=== PATIENT | female | born 2000 | race African-American/Black ===

== ENCOUNTER 2025-09-06 08:24 | Emergency (ER) | payer SELFPAY ==
[2025-09-06 08:28] VITALS: BP 123/58; PULSE 81; RESP 18; TEMP 36.6; O2SAT 98; BMI 30.1
--- NOTE | 2025-09-06 10:39 | ED_ITS ---
HPI - Skin/Abscess/Foreign Bdy General Chief complaint: Skin/Abscess/Foreign Body Stated complaint: hives, facial swelling Time Seen by Provider: 09/06/25 10:39 Source: patient Mode of arrival: ambulatory Limitations: no limitations History of Present Illness ED Provider: YUDELKA LANE PA-C HPI narrative: 24 year old female presents with sinus pain x24 hours. Reports returning home from work yesterday where she began having left sided sinus pain. Upon waking up this morning, felt pain to b/l maxillary sinsues, nasal congestion, and felt as though her face appeared swollen. 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 Additionally, reports the skin to her face has been dry and itchy recently. She has been applying lotion to the area - has been using this lotion for some time and has not had a reaction to it. No new medications/ antibiotics. Denies recent tick/insect bites. No known allergies. Denies fever, chills, cough, difficulty breathing, difficulty swallowing, sore throat. Related Data Previous Rx's ?Medication ?Instructions ?Recorded amoxicillin 875 mg-potassium 1 tab PO BID 7 days #14 t abs 09/06/25 clavulanate 125 mg tablet prednisone 20 mg tablet 40 mg (2 x 20 mg) PO DAILY 5 days 09/06/25 #10 tabs Allergies Allergy/AdvReac Type Severity Reaction Status Date / Time No Known Allergies Allergy Verified 09/06/25 08:31 Review of Systems Review of Systems: Yes all other systems are reviewed and are negative PMFSH Past Medical History Attestation statement: The following information was validated with the patient. Source: old records reviewed and nursing notes reviewed Social History Social History Advance Directives: No Advance Directives Information Provided: Yes Physical Exam Vital Signs: Vital Signs: Last Vital Signs Temp 97.8 F 09/06/25 08:28 Pulse 81 09/06/25 08:28 Resp 18 09/06/25 08:28 BP 123/58 L 09/06/25 08:28 Pulse Ox 98 09/06/25 08:28 O2 Del Method Room Air 09/06/25 08:28 BMI result Body Mass Index 30.1 Vital signs stable General: Well appearing, in no acute distress. Skin: Warm, dry, intact. No rashes. Head: Normocephalic, atraumatic. Mild erythema and swelling noted over bilateral maxillary sinuses, tender to percussion of bilateral maxillary sinuses. No tenderness to percussion over frontal sinus. EENT: Hearing is intact b/l. Conjunctiva clear. PERRLA. EOM intact. Moist mucous membranes.? Noted nasal congestion. Posterior oropharynx without erythema or edema, no peritonsillar masses, uvula midline, controlling secretions, speaking complete sentences. No muffled voice. Neck: Supple without LAD Cardiac: Chest wall symmetric. RRR Lungs: Normal respiratory effort without accessory muscle use. CTA bilaterally Ext: Upper and lower extremities atraumatic, without tenderness, deformity, swelling or erythema. Full ROM throughout Neuro: AOx3. Normal speech. Ambulating with steady gait. Medical Decision Making Medical Decision Making [facility] Narrative: 24 year old female presents with sinus pain x24 hours. Vitals are stable, airways patent. She is afebrile. Presentation concerning for sinusitis, plan to discharge patient home on Augmentin. Given itching, can not completely rule out allergic reaction however I do not suspect acute anaphylaxis. Will start patient on prednisone and advised [id number] Benadryl. I have also considered contact/atopic/eczematous dermatitis, psoriasis. History and exam findings not consistent with lyme/tick bourne illness, herpes zoster/simplex, scabies, HFM,? dangerous etiologies of rash such as SJS/TEN, or secondary dangerous causes such as petechial rashes from thrombocytopenia or rickettsial infections.? Differential Diagnosis Differential Diagnoses: The differential diagnosis associated with the presentation includes as above. Admission/Observation Not indicated External Record Review External record reviewed: Inpatient record Prescription Management I considered prescription management with: Antibiotic (Augmentin) and Other (Prednisone) Social Determinants Patient?s care significantly limited by Social Determinants of Health including: Other Social Determinant of Health Critical Care Time Critical Care Time Critical Care Time: No Discharge Plan Discharge Clinical Impression: Sinusitis Patient Disposition: Home, Self-Care Instructions: Sinusitis (ED) Additional Instructions: I am treating you for a sinus infection. Augmentin as an antibiotic that has been sent to your pharmacy. Take this as prescribed and to completion. On Augmentin, softer bowel movements are to be expected. Call your provider if you move your bowels more than 4 times a day, your bowel movements are almost all liquid, or you get a rash.? I am also sending a course of prednisone to your pharmacy. Take this as prescribed x5 days. You may take [id number] Benadryl as needed for itching. Return with any new or worsening symptoms. In the case of an emergency call 911. Prescriptions: New amoxicillin-pot clavulanate 875-125 mg tablet 1 tab PO BID 7 Days Qty: 14 0RF prednisone 20 mg tablet 40 mg PO DAILY 5 Days Qty: 10 0RF Referrals: Physician,None [Primary Care Provider, Medical] Print Language: Tuvaluan
[2025-09-06 11:21] VITALS: BP 123/58; PULSE 81; RESP 18; TEMP 36.6; O2SAT 98
--- OUTSIDE RECORDS SUMMARY | 2025-09-06 11:36 | XMS_ITS | Clinical Summary ---
Author Organization [facility] Address [address] [place] [phone] Phone Care Team Providers Care Office Assistant Name Role Phone Unknown, Unknown Primary Care Provider Diego deleon Social History Tobacco Use Types Packs/Day Years Used Date Smoking Tobacco: Never Assessed Education Answer Date Recorded Are you interested in more education? Not on codey e 01/11/2023 Are you concerned about learning? Not on file 01/11/2023 No 01/11/2023 No 01/11/2023 Digital Access Answer Date Recorded No 02/09/2023 No 02/09/2023 No 02/09/2023 Reliable internet access at home? Not on file 02/09/2023 Device with a working camera? Not on file Comments Unknown Sex and Gender Information Value Date Recorded Sex Assigned at Not on file Legal Sex Female 9:42 AM EST Gender Identity Not on file Sexual Orientation Not on file Plan of Treatment Health Maintenance Due Date Last Done Comments Adult Td,Tdap Booster 2002 DEPRESSION SCREENING 2014 SMOKING Hx and SMOKELESS TOB ACCO SCREENING 2015 HPV VACCINES (1 - 3-dose series) 2017 CHLAMYDIA SCREENING 2018 MENINGOCOCCAL VACCINES (B) ( 1 of 2 - Standard) 2018 HEPATITIS C SCREENING 2020 HIV ONE-TIME SCREENING (18-6 5 YEARS) 2020 PAP SMEAR 2023 INFLUENZA VACCINE (#1) 2025 COVID-19 VACCINE ( - 2024-2 6 season) 2025 HEPATITIS A VACCINES Aged Out No long er eligible based on patient's age to complete this topic HIB VACCINES Aged Out No longer eligi ble based on patient's age to complete this topic MENINGOCOCCAL VACCINES (ACWY) Aged Out No longer eligible based on patient's age to complete this topic PNEUMOCOCCAL VACCINES (0-49 years) Aged Out No longer eligible based on patient's age to complete this topic Medical Devices Not on file Insurance [facility] [employer] [facility] [place] [employer] [facility] [employer] [facility] [place] [facility] [employer] Care Teams Office Assistant Relationship Specialty Start Date End Date Unknown, Unknown, PCP - General 08/13/22 Additional Source Comments The information contained in this document represents components of the legal health record. It is not the complete legal health record.[facility]
--- OUTSIDE RECORDS SUMMARY | 2025-09-06 11:36 | XMS_ITS | Clinical Summary ---
Author Organization [facility] Address [id number] [place] [id number] Care Team Providers Care Call Center Operator Name Role Phone Unavailable Primary Care Provider Unavailabl e Social History Tobacco Use Types Packs/Day Years Used Date Smoking Tobacco: Never Assessed Comments Unknown Sex and Gender Information Value Date Recorded Sex Assigned at Not on file Legal Sex Female 1:38 PM EDT Gender Identity Not on file Sexual Orientation Not on file Plan of Treatment Health Maintenance Due Date Last Done Comments Gonorrhea/Chlamydia Screening 2002 HPV Vaccines (1 - 3-dose series) 2017 Meningococcal B Vaccine (1 o f 2 - Standard) 2018 DTaP,Tdap,and Td Vaccines (1 - Tdap) 2021 Hepatitis B Vaccines (1 of 3 - 19+ 3-dose series) 2021 Cervical Cancer Screening: P ap Smear 2023 HIV Screening 04/07/2024 Hepatitis C Screening 04/07/2024 Social Influencers of Health Screening 04/07/2024 Depression Screening 09/15/2024 COVID-19 Vaccine (1 - 2024-2 6 season) 2025 Influenza Vaccine (#1) 2025 RSV Immunization Adult Patie nts (1 - 1-dose 75+ series) 2077 HIB Vaccines Aged Out No longer eligi ble based on patient's age to complete this topic Hepatitis A Vaccines Aged Out No long er eligible based on patient's age to complete this topic IPV Vaccines Aged Out No longer eligi ble based on patient's age to complete this topic MMR Vaccines Aged Out No longer eligi ble based on patient's age to complete this topic Meningococcal ACWY Vaccine Aged Out N o longer eligible based on patient's age to complete this topic Pneumococcal Vaccine: Pediat rics (0 to 5 Years) and At-Risk Patients (6 to 49 Years) Aged Out No longer eligible b ased on patient's age to complete this topic RSV Immunization Patients Un angel luis 20 months Aged Out No longer eligible b ased on patient's age to complete this topic Varicella Vaccines Aged Out No longer eligible based on patient's age to complete this topic
== END 2025-09-06 11:22 | disposition home or self-care (01) ==
PROVIDERS: Emergency Provider Emergency Medicine
DX: J32.9 Chronic sinusitis, unspecified (principal)
CPT/HCPCS: 99282; 99283